=== PATIENT | male | born 1970 | race Caucasian/White ===

== ENCOUNTER 2019-06-09 21:15 | Observation (INO) | payer MEDICARE, SELFPAY ==
[2019-06-09 21:16] VITALS: BP 125/86; PULSE 126; RESP 15; TEMP 36.7; O2SAT 98; BMI 44.6
--- NOTE | 2019-06-09 21:19 | ED.RN ---
RN CALLED FOR EKG, NO OLD EKGS IN MUSE
--- NOTE | 2019-06-09 21:33 | EKG12_ITS ---
Test Reason : CP Blood Pressure : / mmHG Vent. Rate : 118 BPM Atrial Rate : 118 BPM P-R Int : 162 ms QRS Dur : 086 ms QT Int : 288 ms P-R-T Axes : 063 066 105 degrees QTc Int : 403 ms Sinus tachycardia Nonspecific T wave abnormality Abnormal ECG Confirmed by SHADY DOS SANTOS, ANTONY ([id number]), non linear editor COREY OSPINA ([id number]) on 06/11/2019 1:55:16 PM Referred By: COURTNEY Confirmed By:ANTONY CARUSO MD
[2019-06-09 21:37] VITALS: O2SAT 99
--- NOTE | 2019-06-09 21:37 | RAD_ITS ---
STUDY: X-RAY CHEST REASON FOR EXAM: Male, 49 years old. Chest pain. History of right lung surgery. TECHNIQUE: Single frontal view of the chest. COMPARISON: None. FINDINGS: There are postsurgical changes of the right lung. There is blunting of the right costophrenic angle. Normal size heart. Normal mediastinum and moy. Normal visualized pulmonary arteries. Normal visualized aortic arch and descending thoracic aorta. Normal visualized thoracic spine. Normal visualized ribs, clavicles, and shoulders. There is no demonstrated abnormality of the visualized soft tissue structures of the upper abdomen. RAD/Chest 1 View (Portable) IMPRESSION: Blunting of the right costophrenic angle which may be postsurgical in nature however cannot exclude an underlying effusion and/or consolidation. Electronically Signed: Taryn Alamo MD at 21:49 EDT Tel , Service support ,
[2019-06-09 21:48] LABS: Absolute Lymphocyte Count 2.89 X10^3/ul (0.83-4.51); Basophil# 0.04 X10^3/uL; Basophil% 0.3 % (0-1); Eosinophil# 0.12 X10^3/uL; Hematocrit 45.8 % (40-54); Hemoglobin 16.3 g/dl (13.0-16.5); Lymphocyte # 2.89 X10^3/ul (4.0); Lymphocyte % 24.5 % (19-41); Mean Corp Hgb Conc 35.6 g/gl (32-36); Mean Corpuscular Hgb 29.3 pg (27.0-32.0); Mean Corpuscular Volume 82.4 fL (80-94); Mean Platelet Vol. 11.1 fl (6.2-12.0); Monocyte# 0.71 X10^3/uL; Neutrophil # 7.99 X10^3/uL (2.7-7.7); Neutrophil % 67.9 % (47-70); Platelet Count 222 K/mm3 (150-450); RBC Distribution Width CV 13.6 % (11.6-14.6); Red Blood Count 5.56 M/mm3 (4.6-6.2); White Blood Count 11.8 K/mm3 (4.4-11.0)
[2019-06-09 21:52] LABS: POSITIVE COUNT NO; POSITIVE DIFFERENTIAL NO; POSITIVE MORPHOLOGY NO
[2019-06-09 21:59] LABS: Anion Gap 8 (5-15); BUN 17 mg/dL (7-18); BUN/Creat Ratio 14.8 RATIO (10-20); Calcium,Total 9.2 mg/dL (8.5-10.1); Chloride 101 mmol/L (98-107); Creatinine, Serum 1.15 mg/dL (0.70-1.30); EST Glomerular Filtration Rate 72 mL/min (>60); Est Glom Filt Rate - Afr Amer 87 mL/min (>60); Estimated Creatinine Clearance 86.22 ml/min; Glucose 189 mg/dL (74-106); Potassium 3.6 mmol/L (3.5-5.1); Sodium Level 136 mmol/L (136-145)
[2019-06-09] MEDS: Nitroglycerin SL (ED/IMG/CATH) 0.4 MG TABLET SUBLINGUAL (22:11)
[2019-06-09 22:12] VITALS: BP 113/74; PULSE 108; RESP 19; O2SAT 96
[2019-06-09 22:17] VITALS: BP 98/62; PULSE 105; RESP 17; O2SAT 97
--- NOTE | 2019-06-09 22:35 | ED.DCSUM_ITS ---
History of Present Illness Chief Complaint: Chest Pain Informant: Patient, Family Onset: Days Context: Sudden Onset Timing: Intermittent Quality: Tightness with radiation to the neck, shoulder and left upper extremity Location: Read above Current Severity: Mild Maximum Severity: Moderate Worsened by: Possibly activity Relieved by: Nothing Associated Symptoms: Nausea, shortness of breath and diaphoresis Narrative: Patient is a middle-age male with history of mild coronary coronary disease diagnosed 2 to 3 years ago at [facility]. He states his intermediate card tender was Dr. Mann Downing. He does have risk factors. He took nitroglycerin with no effect. Activity does make the pain worse. He denies hematemesis, melena hematochezia. He denies history of PE or DVT. He did report right leg swelling. He denies orthopnea or PND. Prior similar symptoms: Yes Recent Illness/Hospitalization: No - Past Medical History (1) History of hypertension Status: Acute (2) History of hypercholesterolemia Status: Acute (3) History of type 1 diabetes mellitus Status: Acute (4) History of coronary artery disease Status: Acute Past Medical History - Allergies and Home Meds Allergies/Adverse Reactions: Allergies ciprofloxacin [From Cipro] Adverse Reaction (Verified 06/09/19 21:19) Itching ketorolac [From Toradol] Adverse Reaction (Verified 06/09/19 21:19) Nausea tramadol Adverse Reaction (Verified 06/09/19 21:19) Nausea Primary Care Physician: Steven Fitch,Out of [Primary Care Provider] - Prior records reviewed: No Lives: Spouse/ Significant Other Smoking Status: Current every day smoker Alcohol: Rare Review of Systems General: Denies: Chills, Fever, Malaise, Sweats Eyes: Denies: Visual changes - bilaterally, Diplopia ENT: Denies: Rhinorrhea, Sore throat Cardiovascular: Reports: Chest pain. Denies: Palpitations, Heart racing, -, - Respiratory: Reports: Dyspnea, Dyspnea on exertion. Denies: Cough, Sputum, Orthopnea, Paroxysmal nocturnal dyspnea, -, - Gastrointestinal: Reports: Nausea. Denies: Abdominal pain, Vomiting, Diarrhea, Constipation, Melena, Hematochezia, -, - Genitourinary: Denies: Dysuria, Hematuria, Frequency Musculoskeletal: Denies: Back pain, Extremity Pain Skin: Denies: Rash, Wounds Neurological: Denies: Headache, Weakness, Numbness Hematologic: Denies: Easy bruising, Easy bleeding Allergy: Denies: Uticaria, Swelling of the mouth Physical Exam Vital Signs/Narrative: Vital Signs Temp Pulse Resp BP Pulse Ox 06/09/19 22:17 105 H 17 98/62 97 06/09/19 22:12 108 H 19 H 113/74 96 06/09/19 21:37 99 06/09/19 21:16 98.1 F 126 H 15 125/86 H 98 Inital Vital Signs reviewed: Yes General: Well nourished, Well developed, No Acute Distress Head: Normocephalic, Atraumatic Eyes: Perrl, EOMI ENT: Moist mucous membranes, No rhinorrhea Neck: Supple, Nontender, No lymphadenopathy, No JVD Cardiovascular: Regular rate, Regular rhythm, No murmurs, Normal S1, Normal S2 Respiratory: No distress, CTA bilaterally, Chest nontender Abdomen: Soft, Nontender, Nondistended, Normal bowel sounds Back: Nontender, Normal Inspection. Negative for: CVA tenderness, Spinal tenderness Extremities: Nontender, No edema Skin: Normal color, No rash Neurological: Alert, Oriented x3, Cranial nerves II-XII grossly intact, Normal Strength, Normal Sensation Psychological: Normal affect, Normal Mood Diagnostic/Tx/Re-eval Chest X-Ray - ED: 1 View, Read by ED Physician, Normal, Heart, Lungs, Mediastinum, No Acute Disease Impressions Chest X-Ray 06/09/19 21:37 IMPRESSION: Blunting of the right costophrenic angle which may be postsurgical in nature however cannot exclude an underlying effusion and/or consolidation. Electronically Signed: Taryn Alamo MD at 21:49 EDT Tel , Service support , 06/09/19 21:37 Chest 1 View (Portable) [RAD] Stat Laboratory Results 06/09/19 06/09/19 21:23 21:23 WBC 11.8 H RBC 5.56 Hgb 16.3 Hct 45.8 MCV 82.4 MCH 29.3 MCHC 35.6 RDW 13.6 RDW Differential 41.0 Plt Count 222 MPV 11.1 Immature Gran % (Auto) 0.300 Neut % (Auto) 67.9 Lymph % (Auto) 24.5 [place] % (Auto) 6.0 Eos % (Auto) 1.0 Baso % (Auto) 0.3 Absolute Neuts (auto) 8.0 H Absolute Lymphs (auto) 2.89 Total Counted Not Reportable Sodium 136 Potassium 3.6 Chloride 101 Carbon Dioxide 27.0 Anion Gap 8 BUN 17 Creatinine 1.15 Estim Creat Clear Calc 86.22 Est GFR (MDRD) Af Amer 87 Est GFR (MDRD) Non-Af 72 BUN/Creatinine Ratio 14.8 Glucose 189 H Calcium 9.2 Troponin I < 0.015 - Medical Decision Making With multiple risk factors for coronary disease and history of mild coronary disease cardiac work-up was undertaken. This may also represent noncardiac chest pain. History is not consistent nor is exam suggestive of biliary disease. Doubt reflux. Patient was treated with aspirin, nitroglycerin. Work-up was unremarkable. Patient states nitroglycerin did not help. Will treat with IV morphine. ED Disposition - Plan for ED Patient: Disposition: Acute Care Hospital [facility] Diagnosis: Midsternal chest pain, History of coronary artery disease, History of hypercholesterolemia, History of type 1 diabetes mellitus, History of hypertension Referrals: [facility] Doctor,Out of [Primary Care Provider] -
[2019-06-09 23:28] VITALS: BP 107/79; PULSE 93; RESP 11; O2SAT 97
[2019-06-09] MEDS: Morphine 4 MG/ML Syringe IV (23:35)
[2019-06-09 23:36] VITALS: BP 124/77; PULSE 105; RESP 19; TEMP 36.6; O2SAT 97
--- NOTE | 2019-06-09 23:53 | HP.PCM_ITS ---
Problem List (1) Diabetes mellitus Status: Acute Qualifiers: Diabetes mellitus type: type 2 Diabetes mellitus terminal carman insulin use: with [facility] use Diabetes mellitus complication status: with other specified complication Qualified Code(s): E11.69 - Type 2 diabetes mellitus with other specified complication; Z79.4 - extermination supervisor (current) use of insulin (2) CAD (coronary artery disease) Status: Chronic Qualifiers: Coronary Disease-Associated Artery/Lesion type: [place] artery [place] vs. transplanted heart: [place] heart Associated angina: with unspecified angina Qualified Code(s): I25.119 - Atherosclerotic heart disease of [place] coronary artery with unspecified angina pectoris (3) Hypertension Status: Chronic Qualifiers: Hypertension type: essential hypertension Qualified Code(s): I10 - Essential (primary) hypertension (4) Hyperlipidemia Status: Chronic Qualifiers: Hyperlipidemia type: unspecified Qualified Code(s): E78.5 - Hyperlipidemia, unspecified History of Present Illness Date of Admission: 06/10/19 Chief Complaint: Chest pain - 2 days The patient is a 49 year old M with past medical history of type II DM, hyperlipidemia, hypertension, morbid obesity, chronic smoker, CAD, anxiety/depression who comes in with complaints of chest pain which started 1 day prior to arrival. Chest pain is of sudden onset, intermittent, sharp, radiates to the neck showed in the left side of the chest. It comes on at rest, and worse with activity, not relieved by anything. It is associated with diaphoresis, shortness of breath, nausea but no vomiting. He also admits to feeling lightheaded and having palpitations. He took a nitroglycerin which had no effect. He admits to having had a cardiac cath done 3 years ago in [facility] after a stress test was abnormal. Cardiac cath was apparently normal He has not followed up with cardiology after that since. Vitals in the ED showed temperature 98.1 F, heart rate 126, blood pressure 125/86, respiratory 15, SPO2 is 98% on room air. His CBC D was remarkable only for WBC count of 11.8, BMP was unremarkable except for glucose of 189. Troponin x1 was negative. EKG shows normal sinus rhythm, no acute ST changes. Chest x-ray shows blunting of the right costophrenic angle, suggestive of effusion Past Medical History Past Medical History (Chronic Problems): Chronic Problems History of hypertension (Chronic) CAD (coronary artery disease) (Chronic) Hypertension (Chronic) Hyperlipidemia (Chronic) Allergies ciprofloxacin [From Cipro] Adverse Reaction (Verified 06/09/19 21:19) Itching ketorolac [From Toradol] Adverse Reaction (Verified 06/09/19 21:19) Nausea tramadol Adverse Reaction (Verified 06/09/19 21:19) Nausea Home Medications: Ambulatory Orders Medication Instructions Recorded Atorvastatin Calcium [Lipitor] 80 mg PO QHS 06/09/19 Furosemide [Lasix] 10 mg PO DAILY 06/09/19 Insulin Lispro [Humalog] 25 unit SQ TIDCM 06/09/19 Metformin HCl 1,000 mg PO BID 06/09/19 Ranolazine [Ranexa] 1,000 mg PO BID 06/09/19 Surgical History: cholecystectomy, herniorrhaphy, tonsillectomy, - - Status post lung surgery for possible lung abscess, status post left orchidectomy for testicular CA, status post 2 cardiac cath Psychiatric History: Anxiety, Depression Lives: Spouse/ Significant Other Smoking Status: Current every day smoker Tobacco Use: Cigarettes Alcohol: Rare Drugs: None - *Family History Maternal History Items: No pertinent history Paternal History Items: Heart Disease - Congestive heart failure, quadruple bypass Review of Systems Constitutional: Denies: Anorexia, Chills, Fever, Malaise, Weakness, Weight Change, Fatigue Eyes: Denies: Blurred vision, Cataracts, Conjunctivae Inflammation, Pain, Redness, Vision Change HEENT: Denies: Difficulty Hearing, Difficulty Swallowing, Head Aches, Hearing Changes Cardiovascular: Reports: Chest Pain, Chest Pressure, Chest Tightness, Light Headedness, Palpitations. Denies: Orthopnea, Paroxysmal Noc. Dyspnea, Syncope Respiratory: Reports: Shortness of Breath, Shortness of breath at rest, Shortness of breath upon exertion. Denies: Cough, Hemoptysis, Sputum production, Wheezing Gastrointestinal: Denies: Abdominal Pain, Constipation, Hematemesis, Hematochezia, Nausea, Melena, Vomiting Genitourinary: Denies: Dysuria, Frequency, Nocturia Musculoskeletal: Denies: Joint stiffness, Joint swelling, Joint Tenderness Neurological: Denies: Difficulty swallowing, Focal weakness, Headaches Psychiatric: Reports: Anxiety, Depression Hematologic/ Lymphatic: Denies: Easy Bruising, Easy Bleeding VTE Information - Inpt Only VTE Present on Admission: No VTE Pharm Prophylaxis ordered?: Yes Patient Problems: Active and Suspected Problems History of hypercholesterolemia (Acute) History of type 1 diabetes mellitus (Acute) History of coronary artery disease (Acute) Diabetes mellitus (Acute) - Physical Exam General: Alert, Oriented x3, Cooperative, No apparent distress, - - morbidly obese HEENT: Atraumatic, PERRLA, EOMI, Normocephalic Oral: Moist Mucosa Neck: Supple Lungs: Normal air movement, Diminished - especially at the lung bases Cardiovascular: Regular rate, Regular Rhythm, Normal S1, Normal S2, No murmurs Abdomen: Bowel Sounds Present, Soft, Non Tender, Non-Distended, No Hepato- splenomegaly Extremities: No edema Skin: - - Tattoe over his back, erythematous papular rash, heat related Musculoskeletal: No Tenderness to Palpation of Joints or Extremities Lymphatic: No Cervical, Supraclavicular, or Inguinal Adenopathy Neurological: Cranial nerves II-XII grossly intact, Neuro grossly intact Psych/Mental Status: Normal Affect, Appropriate Vital Signs Temp Pulse Resp BP Pulse Ox 97.9 F 105 H 19 H 124/77 H 97 06/09/19 23:36 06/09/19 23:36 06/09/19 23:36 06/09/19 23:36 06/09/19 23:36 Oxygen Flow Rate (L/min) 1 Oxygen Delivery Method Nasal Cannula Weight: 149.4 kg Body Mass Index (BMI) 44.6 Laboratory Tests Past 24 Hrs 06/09/19 06/09/19 21:23 21:23 WBC 11.8 H RBC 5.56 Hgb 16.3 Hct 45.8 MCV 82.4 MCH 29.3 MCHC 35.6 RDW 13.6 RDW Differential 41.0 Plt Count 222 MPV 11.1 Immature Gran % (Auto) 0.300 Neut % (Auto) 67.9 Lymph % (Auto) 24.5 [place] % (Auto) 6.0 Eos % (Auto) 1.0 Baso % (Auto) 0.3 Absolute Neuts (auto) 8.0 H Absolute Lymphs (auto) 2.89 Total Counted Not Reportable Sodium 136 Potassium 3.6 Chloride 101 Carbon Dioxide 27.0 Anion Gap 8 BUN 17 Creatinine 1.15 Estim Creat Clear Calc 86.22 Est GFR (MDRD) Af Amer 87 Est GFR (MDRD) Non-Af 72 BUN/Creatinine Ratio 14.8 Glucose 189 H Calcium 9.2 Troponin I < 0.015 Assessment/Plan All Active Problems History of hypercholesterolemia (Acute) History of type 1 diabetes mellitus (Acute) History of coronary artery disease (Acute) Diabetes mellitus (Acute) 49 year old M with past medical history of type II DM, hyperlipidemia, hypertension, morbid obesity, chronic smoker, CAD, anxiety/depression who comes in with complaints of chest pain which started 1 day prior to arrival. 1. Chest pain, atypical, in the male with multiple comorbidities including type II DM, hypertension, hyperlipidemia, CAD, chronic smoker and strong family history of coronary artery disease in father, Troponins x1 is negative, EKG shows no acute ST-T changes Plan: Admit to PCU, continue to monitor on telemetry, trend troponins aspirin 81 mg p.o. daily, continue on statins, nitro as needed, 2D echo, stress test in a.m. Continue on Ranexa 2. Type II DM, on insulin and metformin, will hold metformin, continue insulin, blood sugar checks with insulin sliding scale 3. Hyperlipidemia: Continue home statin regimen 4. Morbid obesity, BMI 43.7, lifestyle modification recommended 5. Nicotine dependence, advised to quit, will continue on replacement 6. Abnormal chest x-ray suggestive of right pleural effusion, history of lung surgery in the past, will get CT of the chest to evaluate 7. DVT PPx- Lovenox 40mg BID Code Visit OBSV E&M: 56002 Initial observation care L3
[2019-06-10] VITALS (8 sets, daily range): BP systolic 107–138; BP diastolic 65–82; PULSE 82–93; RESP 16–18; TEMP 36.4–37.1; O2SAT 97–99; BMI 43.7
--- NOTE | 2019-06-10 00:49 | EKG12_ITS ---
Test Reason : CP ADMISSION Blood Pressure : / mmHG Vent. Rate : 084 BPM Atrial Rate : 084 BPM P-R Int : 170 ms QRS Dur : 096 ms QT Int : 360 ms P-R-T Axes : 043 037 063 degrees QTc Int : 425 ms Normal sinus rhythm Nonspecific ST and T wave abnormality Abnormal ECG When compared with ECG of 09-JUN-2019 21:18, MANUAL COMPARISON REQUIRED, DATA IS UNCONFIRMED Confirmed by SHADY DOS SANTOS, ANTONY ([id number]), social media editor COREY OSPINA ([id number]) on 06/12/2019 11:19:11 AM Referred By: DALIA Confirmed By:ANTONY CARUSO MD
--- NOTE | 2019-06-10 01:09 | ECHOCS_ITS ---
Reason For Study: CHEST PAIN Procedure This was a 2D Doppler, Color Flow transthoracic echocardiogram. Technically difficult d/t body habitus. Exam performed portable in patient room. Left Ventricle Normal LV size. Mild concentric left ventricular hypertrophy. Left ventricular systolic function is normal. The estimated ejection fraction is 65 %. Stage 1 diastolic dysfunction. No regional wall motion abnormalities noted. Right Ventricle Normal RV size. Normal systolic function. Atria Normal left atrium. Normal right atrium. Mitral Valve Normal mitral valve. Tricuspid Valve Normal tricuspid valve. Aortic Valve Trisinus/trileaflet aortic valve. Pulmonic Valve Normal pulmonic valve. Great Vessels Normal aortic root. The pulmonary artery is normal size. Normal inferior vena cava. Pericardium/Pleural No pericardial effusion. Medication Diluted definity 4ml given slow IV push to enhance endocardial definition. MMode/2D Measurements & Calculations LVIDd: 4.4 cm IVSd: 1.2 cm Ao root diam: 3.2 cm LVIDs: 3.2 cm LVPWd: 1.2 cm RVDd: 3.9 cm FS: 28.8 % LAV(MOD-bp): 57.9 ml LVAd ap4: 36.0 cm2 SV(MOD-sp4): 80.4 ml LAV(MOD-bp) Indexed: 22.0 ml/m2 EDV(MOD-sp4): 124.5 ml LAV(MOD-sp2): 63.6 ml EDV(sp4-el): 131.6 ml LAV(MOD-sp4): 48.0 ml LVAs ap4: 19.6 cm2 ESV(MOD-sp4): 44.1 ml ESV(sp4-el): 46.7 ml EF(MOD-sp4): 64.6 % EF(sp4-el): 64.6 % SV(sp4-el): 85.0 ml LA A4 area: 17.2 cm2 LA dimension(2D): 3.7 cm RA A4 area: 17.3 cm2 Time Measurements MV dec time: 0.19 sec Doppler Measurements & Calculations MV E max horace: 59.1 cm/sec Lat Peak E' Horace: 9.7 cm/sec Med Peak E' Horace: 6.8 cm/sec MV A max horace: 57.2 cm/sec E/E' lat: 6.1 E/E' med: 8.6 MV E/A: 1.0 Ao V2 max: 135.5 cm/sec LV V1 max: 122.0 cm/sec PA V2 max: 94.2 cm/sec Ao max P.4 mmHg LV V1 max P.0 mmHg Interpretation Summary Normal LV size. Left ventricular systolic function is normal. The estimated ejection fraction is 65 %. Mild concentric left ventricular hypertrophy. Stage 1 diastolic dysfunction. Contrast injection was performed. Ordering Physician: Ester Duron Performed By: Joanna Espinoza, DOMINGO, RVT
[2019-06-10] MEDS: 0.9% Normal Saline 1,000 ML 75 ML IV (01:11)
[2019-06-10] MEDS: Morphine 2 MG/ML Syringe 1 MG IV ×3 (01:12→10:24)
[2019-06-10] MEDS: Ondansetron 4 MG/2 ML Vial IV (01:13)
[2019-06-10] MEDS: Aspirin 81 MG TAB.CHEW PO (02:45)
--- NOTE | 2019-06-10 05:55 | CT_ITS ---
STUDY: CT CHEST WITHOUT CONTRAST REASON FOR EXAM: Male, 49 years old. Dyspnea. History of right pleural effusion. RADIATION DOSAGE (If Supplied By Facility): CTDIvol = ( 28.71 ) mGy, DLP = ( 1247.95 ) mGycm TECHNIQUE: Transaxial imaging was performed without the administration of intravenous contrast material. Multiplanar coronal and sagittal images were reformatted. Individualized dose optimization techniques were used for this CT. COMPARISON: None. FINDINGS: Small bilateral axillary lymph nodes. Findings suggestive minimal scarring at the right lung base. Elevation of the right hemidiaphragm. There is no demonstrated pleural abnormality. There are calcifications of the coronary arteries. There are multiple small lymph nodes within the mediastinum, which are normal in size and morphology most compatible with reactive lymph hyperplasia. Normal hilar regions. Normal unenhanced pulmonary arteries. Normal aorta arch and descending thoracic aorta. There are degenerative changes of the thoracic spine. Posterior right-sided rib deformity secondary to prior lung surgery. The patient is status post cholecystectomy. CT/Chest without Contrast IMPRESSION: Findings suggestive of minimal scarring at the right lung base. There is no evidence of pleural effusion. Electronically Signed: Brent Patel, at 15:31 EDT , Service support ,
[2019-06-10 06:10] LABS: Absolute Lymphocyte Count 2.52 X10^3/ul (0.83-4.51); Absolute Neutrophil Count 5.2 X10^3/uL (2.0-7.7); Basophil# 0.05 X10^3/uL; Basophil% 0.6 % (0-1); Eosinophil# 0.17 X10^3/uL; Eosinophils% 1.9 % (0-5); Hematocrit 45.5 % (40-54); Hemoglobin 15.9 g/dl (13.0-16.5); Lymphocyte # 2.52 X10^3/ul (4.0); Lymphocyte % 28.8 % (19-41); Mean Corp Hgb Conc 34.9 g/gl (32-36); Mean Corpuscular Hgb 28.2 pg (27.0-32.0); Mean Corpuscular Volume 80.8 fL (80-94); Mean Platelet Vol. 11.5 fl (6.2-12.0); Monocyte# 0.75 X10^3/uL; Monocyte% 8.6 % (0-10); Neutrophil # 5.22 X10^3/uL (2.7-7.7); Neutrophil % 59.8 % (47-70); Platelet Count 202 K/mm3 (150-450); RBC Distribution Width CV 13.9 % (11.6-14.6); RBC Distribution Width SD 40.4 fl (35.1-43.9); Red Blood Count 5.63 M/mm3 (4.6-6.2); White Blood Count 8.7 K/mm3 (4.4-11.0)
[2019-06-10 06:11] LABS: Bedside Glucose 152 mg/dL (70-110)
[2019-06-10 06:13] LABS: POSITIVE COUNT NO; POSITIVE DIFFERENTIAL NO; POSITIVE MORPHOLOGY NO
[2019-06-10 06:17] LABS: Anion Gap 7 (5-15); BUN 16 mg/dL (7-18); BUN/Creat Ratio 20.3 RATIO (10-20); Calcium,Total 8.8 mg/dL (8.5-10.1); Chloride 104 mmol/L (98-107); Cholesterol 127 mg/dL (200); Creatinine, Serum 0.79 mg/dL (0.70-1.30); EST Glomerular Filtration Rate 111 mL/min (>60); Est Glom Filt Rate - Afr Amer 134 mL/min (>60); Estimated Creatinine Clearance 125.51 ml/min; Glucose 131 mg/dL (74-106); High Density Lipoprotein 32 mg/dL; Potassium 3.4 mmol/L (3.5-5.1); Sodium Level 139 mmol/L (136-145); Triglycerides 178 mg/dL; Very Low Density Lipoprotein 36 mg/dL (5-40)
--- NOTE | 2019-06-10 08:36 | NURSING ---
pt off floor at this time for stress test
[2019-06-10] MEDS: 0.9% NaCl Peripheral Flush Adult/Peds IV (10:28)
[2019-06-10 12:46] LABS: Bedside Glucose 247 mg/dL (70-110)
[2019-06-10] MEDS: Insulin Lispro 100 UNIT/ML INSULN.PEN SC ×2 (12:47→18:18)
[2019-06-10] MEDS: Ranolazine 500 MG Tablet 1000 MG PO (12:52)
--- NOTE | 2019-06-10 13:47 | DCINST_ITS ---
- Discharge Diagnoses Current Active Problems: Current Active and Chronic Problems History of hypertension (Chronic) History of hypercholesterolemia (Acute) History of type 1 diabetes mellitus (Acute) History of coronary artery disease (Acute) Diabetes mellitus (Acute) CAD (coronary artery disease) (Chronic) Hypertension (Chronic) Hyperlipidemia (Chronic) You will use the following diet at home:: Calorie/Carbohydrate Controlled (specify 1200, 1400, etc) - 1800 trip / day, Cardiac Your food should be the consistency of: Regular Your liquids should be the consistency of: Regular/Thin Discharge Activity: Return to Normal Activity Allergies/Adverse Reactions: Allergies ciprofloxacin [From Cipro] Adverse Reaction (Verified 06/09/19 21:19) Itching ketorolac [From Toradol] Adverse Reaction (Verified 06/09/19 21:19) Nausea tramadol Adverse Reaction (Verified 06/09/19 21:19) Nausea Medications to take at Discharge Atorvastatin Calcium [Lipitor] 80 mg PO QHS 06/09/19 Furosemide [Lasix] 10 mg PO DAILY 06/09/19 Insulin Lispro [Humalog] 25 unit SQ TIDCM 06/09/19 Metformin HCl 1,000 mg PO BID 06/09/19 Ranolazine [Ranexa] 1,000 mg PO BID 06/09/19 Aspirin [Aspirin, Baby] 81 mg PO DAILY@0800 tab.chew 06/10/19 Primary Care Physician: Steven Fitch,Out of [Primary Care Provider] - Please follow up with your Primary Care Physician in: 1-2 weeks Test Results: Test results from this visit will be discussed in further detail at your follow- up appointment, if applicable. Proposed Discharge Date: 06/10/19
--- NOTE | 2019-06-10 13:48 | STRESSREP ---
Stress Test Report Pharmacologic myocardial perfusion stress test. 49-year-old man with a history of sharp chest pain. Stress protocol: Resting EKG demonstrates normal sinus rhythm with a rate of 78 bpm normal intervals are noted resting blood pressures 128/78 mmHg. 0.4 mg of adenosine was infused per usual protocol followed by rapid intravenous saline flush injection continuous EKG monitoring was performed. The maximum heart rate attained was 100 bpm which was 58% maximum predicted heart rate. Resting blood pressure was 128/78 final blood pressure was 122/70 mmHg. Patient did complain of neck and jaw discomfort during the infusion. The significance of the above is not clear at this time. Myocardial perfusion protocol. 14.8 mCi of technetium 99m sestamibi was injected at rest. 0.4 mg of regadenoson was infused per usual protocol peak infusion 44.9 mCi of technetium 99m sestamibi was injected stress images were obtained stress and rest images were reconstructed in comparing the short axis vertical and horizontal long axis. Gated images was obtained Perfusion SPECT analysis: Review of the stress images demonstrate normal uptake of tracer noted in all areas of the myocardium. On the raw images there is significant GI attenuation artifact noted. No obvious ischemia is however noted to suggest coronary artery disease. Gated SPECT analysis: The gated ejection fraction is noted to be 69%. Conclusion: Normal pharmacologic myocardial perfusion stress test.
[2019-06-10] MEDS: oxyCODONE 5 MG Tablet PO (14:10)
--- NOTE | 2019-06-10 14:30 | VDLE_ITS ---
Reason For Study: RLE swelling RIGHT LEFT GSV is normal. CFV is compressible, spontaneous, phasic, CFV is compressible, spontaneous, phasic, competent, and demonstrates normal competent and demonstrates normal augmentation. augmentation. FV is compressible, spontaneous, phasic, competent and demonstrates normal augmentation. POP V is compressible, spontaneous, phasic, competent and demonstrates normal augmentation. T/P Trunk is compressible. PTV is compressible. RT PerV is compressible. Procedure Exam performed portable in patient room. The exam was diagnostic. A preliminary report was called and/or faxed to [facility]. Interpretation Summary There is no evidence of right lower extremity deep vein thrombosis. Right greater saphenous vein appears patent and compressible segmentally. Normal flow patterns left common femoral vein. Ordering Physician: Bobbi Polk Referring Physician: OTD Performed By: Bharti Gonzales, DOMINGO, RVT
--- NOTE | 2019-06-10 14:53 | PN_ITS ---
Patient Problems: Active and Suspected Problems History of hypercholesterolemia (Acute) History of type 1 diabetes mellitus (Acute) History of coronary artery disease (Acute) Diabetes mellitus (Acute) Subjective: Ongoing chest pain. This is described as midsternal heaviness as well as a sharp left sided rib pain. He has radiation in to his neck. This pain feels similar to the pain he had when he had a cath 3 years ago at which point he was told he has mild CAD. He has never had stents or CABG. He continues to smoke. He also has right ankle swelling and aching that started earlier this week. No hx blood clots. - Physical Exam General: Alert, Oriented x3, Cooperative HEENT: Atraumatic, PERRLA, EOMI, Normocephalic Neck: Supple, No JVD, Negative Carotid Bruits Lungs: Clear to auscultation, Normal air movement Cardiovascular: Regular rate, No murmurs Abdomen: Bowel Sounds Present, Soft, Non Tender Extremities: Capillary Refill Less than 3 Seconds, Edema - 1+ pitting edema RLE. +Vladimir sign. Skin: No rashes, No breakdown Musculoskeletal: No Tenderness to Palpation of Joints or Extremities Neurological: Cranial nerves II-XII grossly intact Psych/Mental Status: Normal Affect, Appropriate, Alert and oriented to time, place, person, mood and affect Vital Signs Temp Pulse Resp BP Pulse Ox 98.5 F 82 16 121/68 H 97 06/10/19 10:20 06/10/19 10:20 06/10/19 10:20 06/10/19 10:20 06/10/19 10:20 Oxygen Flow Rate (L/min) 2 Oxygen Delivery Method Room Air Weight: 322 lb 8.58 oz Body Mass Index (BMI) 43.7 Intake and Output for Last 24 Hours 06/08/19 06/09/19 06/10/19 23:59 23:59 23:59 Intake Total 564 / 564 Balance 564 / 564 Laboratory Tests Past 24 Hrs 06/09/19 06/09/19 06/10/19 21:23 21:23 02:29 WBC 11.8 H RBC 5.56 Hgb 16.3 Hct 45.8 MCV 82.4 MCH 29.3 MCHC 35.6 RDW 13.6 RDW Differential 41.0 Plt Count 222 MPV 11.1 Immature Gran % (Auto) 0.300 Neut % (Auto) 67.9 Lymph % (Auto) 24.5 [place] % (Auto) 6.0 Eos % (Auto) 1.0 Baso % (Auto) 0.3 Absolute Neuts (auto) 8.0 H Absolute Lymphs (auto) 2.89 Total Counted Not Reportable Sodium 136 Potassium 3.6 Chloride 101 Carbon Dioxide 27.0 Anion Gap 8 BUN 17 Creatinine 1.15 Estim Creat Clear Calc 86.22 Est GFR (MDRD) Af Amer 87 Est GFR (MDRD) Non-Af 72 BUN/Creatinine Ratio 14.8 Glucose 189 H Hemoglobin A1c Calcium 9.2 Troponin I < 0.015 < 0.015 Triglycerides Cholesterol LDL Cholesterol VLDL Cholesterol HDL Cholesterol 06/10/19 06/10/19 06/10/19 05:00 05:00 05:00 WBC 8.7 RBC 5.63 Hgb 15.9 Hct 45.5 MCV 80.8 MCH 28.2 MCHC 34.9 RDW 13.9 RDW Differential 40.4 Plt Count 202 MPV 11.5 Immature Gran % (Auto) 0.300 Neut % (Auto) 59.8 Lymph % (Auto) 28.8 [place] % (Auto) 8.6 Eos % (Auto) 1.9 Baso % (Auto) 0.6 Absolute Neuts (auto) 5.2 Absolute Lymphs (auto) 2.52 Total Counted Not Reportable Sodium 139 Potassium 3.4 L Chloride 104 Carbon Dioxide 28.0 Anion Gap 7 BUN 16 Creatinine 0.79 Estim Creat Clear Calc 125.51 Est GFR (MDRD) Af Amer 134 Est GFR (MDRD) Non-Af 111 BUN/Creatinine Ratio 20.3 H Glucose 131 H Hemoglobin A1c 9.0 H Calcium 8.8 Troponin I < 0.015 Triglycerides 178 Cholesterol 127 LDL Cholesterol 59 VLDL Cholesterol 36 HDL Cholesterol 32 L POC Glucose 06/10/19 06/10/19 12:36 05:52 POC Glucose 247 H 152 H Medical Necessity - Tobacco Use Smoking Status: Current every day smoker Tobacco Use: Cigarettes Assessment/Plan All Active Problems History of hypercholesterolemia (Acute) History of type 1 diabetes mellitus (Acute) History of coronary artery disease (Acute) Diabetes mellitus (Acute) 1. Chest pain - concern for worsening of underlying CAD. Symptoms are concerning, recurred during stress test, though stress was negative. Trop neg x 3. Neg tele. CXR neg. CT chest shows enlarged liver. Concern for PE as well. RLE venous duplex ordered as he has intermittent swelling starting earlier this week. No hx clots. -Other risk factors - smoking, morbid obesity, DMt2, HLD, HTN. -Last cath 3 years ago at [facility] no intervention. 2. Dmt2 - A1C 9.0. Poorly controlled. Will need additional agent, ideally one that conveys reduction in cardiovascular events 3. Nicotine abuse - encouraged cessation, patch if desired 4. HTN/HLD - home meds DVT ppx: lovenox DC planning: Cardiology consult. This patient was seen by Edgardo Griffith PA-C under the supervision of Dr. Polk.
[2019-06-10] MEDS: Insulin Lispro 100 UNIT/ML INSULN.PEN 25 UNIT SC ×2 (15:48→18:17)
[2019-06-10 15:56] LABS: Bedside Glucose 222 mg/dL (70-110)
--- NOTE | 2019-06-10 17:10 | CT_ITS ---
STUDY: CTA CHEST REASON FOR EXAM: Male, 49 years old. Chest pain with right lower extremity edema and pain RADIATION DOSAGE (If Supplied By Facility): CTDIvol = ( 15.63 ) mGy, DLP = ( 1156.09 ) mGycm TECHNIQUE: The examination was performed with the intravenous administration of 150 IV Isovue 370. Post-processing of the angiographic images was performed, with multiplanar reformation and 3D reconstruction. Individualized dose optimization techniques were used for this CT. COMPARISON: None. FINDINGS: Limited exam to evaluate for pulmonary embolism. Contrast bolus of the main pulmonary artery only 118 HU. There is no evidence of a large central pulmonary embolus. No comment can be made about distal branches or even second and third branch vessels. No evidence of saddle emboli. Normal thoracic aorta and visualized great vessels. There is no demonstrated aortic dissection. Normal heart and pericardium. No evidence of right heart strain Normal mediastinum. Normal hilar regions. Normal visualized trachea and bronchi. The lungs are well expanded. Normal pulmonary parenchyma. Normal pleura. Normal chest wall structures. Normal osseous structures. Normal visualized upper abdomen. CT/CTA Chest W/WO Contrast IMPRESSION: Suboptimal exam to evaluate for pulmonary embolism as detailed above. No evidence of a very large central pulmonary embolism is noted. Lungs are clear. No evidence of right heart strain. Electronically Signed: Shane Cornejo DO at 18:29 EDT Tel , Service support ,
[2019-06-10 18:30] LABS: Bedside Glucose 207 mg/dL (70-110)
--- NOTE | 2019-06-10 19:00 | PCM.DC.SUM ---
Discharge Date and Diagnosis Date of Admission: 06/10/19 Date of Discharge: 06/10/19 - Primary Discharge Diagnosis (1) Chest Pain, Suspected non-cardiac, unclear specific etiology (2) RLE Pain, Transient Edema, No evidence of acute DVT (3) Incidentally noted RLL Lung scarring (4) Diabetes mellitus type II, uncontrolled (5) Morbid Obesity (6) Hypertension (7) Hyperlipidemia (8) Patient reported CAD (2015 cardiac catheter without any notable CAD findings) - Secondary Discharge Diagnosis Chronic Problems History of hypertension (Chronic) CAD (coronary artery disease) (Chronic) Hypertension (Chronic) Hyperlipidemia (Chronic) Hospital Course and Treatment Operations: None Procedures: 2-D Echocardiogram, EKG, Stress test Summary of Care Provided: The patient is a 49 y/o F w/ PMHx: CAD without PCI with last catheterization ~ 3 years prior, HTN, HLD, Morbid Obesity, Diabetes mellitus type II, Tobacco use, Anxiety and Depression who presented to the [facility] ED on 06/09/19 w/ history of 3-4 day history of intermittent sharp left sided chest pain with radiation to his left jaw with dyspnea associated. EKG in ED without acute evidence of ischemia, CXR w/ blunting, initial trop normal. Admitted to PCU, placed on a monitored bed to assure no acute myocardial infarction with serial cardiac enzymes and EKGs. Patient despite pain regimen with ongoing atypical pain even during stress test although stress testing was noted to be normal with no evidence of inducible ischemia. Records from most recent Cardiac catheterization [facility] 12/15/2015 w/ no significant angiographic CAD disease, normal EF. DVT ultrasound right lower extremity was obtained also given patient recent admitted transient edema but DVT study was noted to be unremarkable. CTPA was also obtained and demonstrated no acute evidence of pulmonary emboli or other acute findings. Discussed case and reviewed records from [facility] where patient had his last recent cardiac catheterization which was completely unremarkable therefore following review of this with cardiology noted a very low risk for cardiac etiology. Patient clinically improved and amenable to discharge following negative CT PA of his chest with plan follow-up outpatient with cardiology. Encouraged improved diabetic medication and diet compliance. Patient discharged home in improved condition with follow-up with primary care physician as well as cardiology recommended follow-up at his discretion. - Physical Exam Vital Signs Temp Pulse Resp BP Pulse Ox 98.1 F 92 18 135/75 H 97 06/10/19 19:04 06/10/19 19:04 06/10/19 19:04 06/10/19 19:04 06/10/19 19:04 Oxygen Flow Rate (L/min) 2 Oxygen Delivery Method Room Air Weight: 322 lb 8.58 oz Body Mass Index (BMI) 43.7 Intake and Output for Last 24 Hours 06/09/19 06/10/19 06/11/19 23:59 23:59 23:59 Intake Total 1211 / 1211 Balance 1211 / 1211 Laboratory Tests Past 24 Hrs 06/10/19 06/10/19 06/10/19 05:00 05:00 05:00 WBC 8.7 RBC 5.63 Hgb 15.9 Hct 45.5 MCV 80.8 MCH 28.2 MCHC 34.9 RDW 13.9 RDW Differential 40.4 Plt Count 202 MPV 11.5 Immature Gran % (Auto) 0.300 Neut % (Auto) 59.8 Lymph % (Auto) 28.8 [place] % (Auto) 8.6 Eos % (Auto) 1.9 Baso % (Auto) 0.6 Absolute Neuts (auto) 5.2 Absolute Lymphs (auto) 2.52 Total Counted Not Reportable Sodium 139 Potassium 3.4 L Chloride 104 Carbon Dioxide 28.0 Anion Gap 7 BUN 16 Creatinine 0.79 Estim Creat Clear Calc 125.51 Est GFR (MDRD) Af Amer 134 Est GFR (MDRD) Non-Af 111 BUN/Creatinine Ratio 20.3 H Glucose 131 H Hemoglobin A1c 9.0 H Calcium 8.8 Troponin I < 0.015 Triglycerides 178 Cholesterol 127 LDL Cholesterol 59 VLDL Cholesterol 36 HDL Cholesterol 32 L POC Glucose 06/10/19 06/10/19 06/10/19 18:13 15:46 12:36 POC Glucose 207 H 222 H 247 H 06/10/19 05:52 POC Glucose 152 H Discharge Activity: Return to Normal Activity Home Medications: Medications to take at Discharge Atorvastatin Calcium [Lipitor] 80 mg PO QHS 06/09/19 Furosemide [Lasix] 40 mg PO DAILY 06/09/19 Insulin Lispro [Humalog] 25 unit SQ TIDCM 06/09/19 Metformin HCl 1,000 mg PO BID 06/09/19 Ranolazine [Ranexa] 1,000 mg PO BID 06/09/19 Amlodipine Besylate 10 mg PO DAILY 06/10/19 Aspirin [Aspirin, Baby] 81 mg PO DAILY@0800 tab.chew 06/10/19 Bupropion HCl [Bupropion Xl] 150 mg PO DAILY 06/10/19 Lisinopril [Zestril] 40 mg PO DAILY 06/10/19 Venlafaxine HCl [Venlafaxine HCl ER] 150 mg PO DAILY 06/10/19 Primary Care Physician: Steven Doctor,Out of [Primary Care Provider] - Please follow up with your Primary Care Physician in: 1-2 weeks Disposition: Home Minutes spent on discharge:: 35 Patient Condition:: Fair Medical Necessity - Tobacco Use Smoking Status: Current every day smoker Tobacco Use: Cigarettes Meaningful Use Info Meaningful Use Diagnoses (Choose all that apply): None applicable Code Visit OBSV E&M: 82693 Observation care discharge
== END 2019-06-10 19:15 | disposition home or self-care (01) ==
LOC: ED 23:19 → PCU 23:35
PROVIDERS: Admitting Provider Internal Medicine; Emergency Provider Emergency Medicine; Visit Provider Family Medicine
DX: R07.89 Other chest pain (principal); M79.604 Pain in right leg; E11.65 Type 2 diabetes mellitus with hyperglycemia; E66.01 Morbid (severe) obesity due to excess calories; E78.5 Hyperlipidemia, unspecified; I10 Essential (primary) hypertension; I25.10 Atherosclerotic heart disease of native coronary artery without angina pectoris; Z68.41 Body mass index [BMI] 40.0-44.9, adult; Z71.3 Dietary counseling and surveillance; Z79.899 Other long term (current) drug therapy; Z79.4 Long term (current) use of insulin; F17.210 Nicotine dependence, cigarettes, uncomplicated
CPT/HCPCS: 36415; 71045; 71250; 71275; 78452; 80048; 80061; 82962; 83036; 84484; 85025; 93005; 93017; 93306; 93971; 96361; 96374; 96375; 96376; 97802; 99218; 99285; 99406; A9500; J7030; Q9957; Q9967; A4216; C8929; G0378; J2405; J2785

== ENCOUNTER 2019-08-21 12:35 | Emergency (ER) | payer MEDICARE, SELFPAY ==
[2019-06-10 00:42] VITALS: BMI 43.7
[2019-08-21 12:38] VITALS: BP 125/86; PULSE 99; RESP 13; TEMP 36.7; O2SAT 92; BMI 44.9
[2019-08-21 12:43] VITALS: O2SAT 97
--- NOTE | 2019-08-21 13:04 | EKG12_ITS ---
Test Reason : CP Blood Pressure : / mmHG Vent. Rate : 096 BPM Atrial Rate : 096 BPM P-R Int : 156 ms QRS Dur : 084 ms QT Int : 328 ms P-R-T Axes : 051 052 055 degrees QTc Int : 414 ms Normal sinus rhythm Normal ECG Confirmed by AMADO DOS SANTOS, BENJI ([id number]), general expeditor RALPH MORENO ([id number]) on 08/23/2019 10:23:46 A M Referred By: DEVIKA Confirmed By:CARMEN FISCHER MD
--- NOTE | 2019-08-21 13:04 | RAD_ITS ---
STUDY: X-RAY CHEST REASON FOR EXAM: Male, 49 years old. Chest pain. TECHNIQUE: Single AP portable view of the chest. COMPARISON: Comparison is made with prior study dated June 09, 2019. FINDINGS: EKG electrodes are seen. Stable elevation of the right hemidiaphragm with blunting of the right costophrenic angle. The lungs are clear. There is no demonstrated pleural abnormality. Normal size heart. Normal mediastinum and moy. Normal visualized pulmonary arteries. Normal visualized aortic arch and descending thoracic aorta. Normal visualized thoracic spine. Normal visualized ribs, clavicles, and shoulders. There is no demonstrated abnormality of the visualized soft tissue structures of the upper abdomen. RAD/Chest 1 View (Portable) IMPRESSION: Stable blunting of the right costophrenic angle with elevation of the right hemidiaphragm. Electronically Signed: Brent Patel, at 13:38 EDT , Service support ,
--- NOTE | 2019-08-21 13:06 | ED.VISSUMM ---
- ER Visit Summary Date of Service: 08/21/19 Chief Complaint: Anxiety and chest pain History of Present Illness: The patient is a 49 M 3 of mild CAD without any stents reportedly prior MS, insulin-dependent diabetes and prior testicular cancer. He had a stress test earlier this year which was unremarkable. Patient states he is been very anxious for the last week because he had a home inspection, not. Today they did a home inspection he was very nervous said he was shaking all over and shaking inside. He developed chest pain on the left side of his chest. Took one nitro which took the pain from a 6 to a 1. But he still feels anxious all over. He thinks this is all from an anxiety attack. He denies any recent exertional chest pain or exertional dyspnea. No history of DVT or PE. No leg swelling. No hemoptysis. No recent immobilization. Physical Examination: White male. Vital signs stable afebrile. Pulse ox 97% on room air no signs of hypoxia. He is in no distress. But he is anxious and nervous. HEENT exam unremarkable. He has multiple piercings. Neck nontender no JVD. Lungs clear to auscultation bilaterally. Heart regular rhythm rate about 90 no murmur. Chest wall nontender. No ecchymosis or bruising. No subcu air crepitance. Abdomen is soft and nontender normal bowel sounds no peritoneal signs. Patient moving all 4 extremities. There are neurovascular intact. 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 Calves are nontender without edema or cords. Neurologically is awake and alert with no focal motor deficits. Test Results: CBC White count 11. Hemoglobin 15. Electrolytes sodium 133. Normal creatinine and gap. Glucose 221. Troponin normal. EKG sinus rhythm rate of 96 no acute signs of MS or ischemia. Unchanged from prior EKG. Chest x-ray shows elevated right hemidiaphragm otherwise unremarkable. Unchanged from prior. Emergency Department Course and Treatment: This very well may be an anxiety attack. Patient undergo cardiac work-up. He will receive baby aspirin and 1 p.o. Ativan for his anxiety. Repeat exam patient had a second anxiety attack while in the emergency department both times he responded well to p.o. Ativan. Clinically I do not feel this is a cardiac event and feel this is anxiety. He has been off 3 separate antidepressant and anxiety meds that he was previously taking but has not had them refilled. Treatment Plan: Refill of his Klonopin, Effexor and Wellbutrin. Follow-up with his primary care physician. Return if worse. Disposition: Discharge Impression: Acute chest pain Acute anxiety attack This note was generated with [employer] dictation software. It may contain incorrect words, spelling, and punctuation that were not noted in review of the chart prior to signing ED Disposition - Plan for ED Patient: Referrals: [facility] Doctor,Out of [Primary Care Provider] -
[2019-08-21] MEDS: Aspirin 81 MG TAB.CHEW 324 MG PO (13:49)
[2019-08-21] MEDS: LORazepam 1 MG Tablet PO ×2 (13:49→14:32)
[2019-08-21 13:51] VITALS: O2SAT 96
[2019-08-21 13:59] LABS: Absolute Lymphocyte Count 1.93 X10^3/uL (0.83-4.51); Absolute Neutrophil Count 8.8 X10^3/uL (2.0-7.7); Basophil# 0.07 X10^3/uL; Basophil% 0.6 % (0-1); Eosinophil# 0.08 X10^3/uL; Eosinophils% 0.7 % (0-5); Hematocrit 45.2 % (40-54); Hemoglobin 15.5 g/dL (13.0-16.5); Lymphocyte # 1.93 X10^3/ul (4.0); Lymphocyte % 16.6 % (19-41); Mean Corp Hgb Conc 34.3 g/dL (32-36); Mean Corpuscular Hgb 28.8 pg (27.0-32.0); Mean Platelet Vol. 10.8 fl (6.2-12.0); Monocyte# 0.72 X10^3/uL; Monocyte% 6.2 % (0-10); NRBC Flagged by Analyzer 0 % (0-5); Neutrophil # 8.76 X10^3/uL (2.7-7.7); Neutrophil % 75.6 % (47-70); Platelet Count 208 K/mm3 (150-450); RBC Distribution Width CV 12.5 % (11.6-14.6); RBC Distribution Width SD 37.8 fl (35.1-43.9); Red Blood Count 5.38 M/mm3 (4.6-6.2); White Blood Count 11.6 K/mm3 (4.4-11.0)
[2019-08-21 14:16] LABS: Anion Gap 4 (5-15); BUN 13 mg/dL (7-18); BUN/Creat Ratio 12.9 RATIO (10-20); Calcium,Total 9.1 mg/dL (8.5-10.1); Chloride 102 mmol/L (98-107); Creatinine, Serum 1.01 mg/dL (0.70-1.30); EST Glomerular Filtration Rate 84 mL/min (>60); Est Glom Filt Rate - Afr Amer 101 mL/min (>60); Estimated Creatinine Clearance 98.17 ml/min; Glucose 221 mg/dL (74-106); Potassium 4.4 mmol/L (3.5-5.1); Sodium Level 133 mmol/L (136-145)
[2019-08-21 14:33] VITALS: BP 175/100; PULSE 113; RESP 16; O2SAT 99
--- NOTE | 2019-08-21 14:33 | ED.RN ---
THIS RN CALLED TO PT ROOM, PT STATES I'M HAVING ANOTHER PANIC ATTACK. PT SITTING UPRIGHT IN BED, APPEARS ANXIOUS, NOTIFIED AND PT MEDICATED AGAIN PER ORDERS.
--- NOTE | 2019-08-21 15:48 | ED.DEP ---
ED Disposition - Plan for ED Patient: Disposition: Home or Assisted Living Instructions: CHEST PAIN, Uncertain Cause, Panic Attack Prescriptions: Venlafaxine XR [Effexor Xr] 150 mg PO DAILY #20 cap.er.24h Prescription Printed Clonazepam [Klonopin] 2 mg PO BID #40 tab Prescription Printed Bupropion HCl [Wellbutrin Xl] 150 mg PO DAILY #20 tab.er.24h Prescription Printed Referrals: [facility] Doctor,Out of [Primary Care Provider] - As soon as possible Additional Instructions: Consult your primary care physician as soon as possible to be reevaluated and have your medications refilled. Return if feeling worse.
[2019-08-21 16:06] VITALS: BP 135/86; PULSE 84; RESP 16; O2SAT 100
== END 2019-08-21 16:10 | disposition home or self-care (01) ==
PROVIDERS: Emergency Provider Emergency Medicine
DX: R07.9 Chest pain, unspecified (principal); F41.9 Anxiety disorder, unspecified; I25.10 Atherosclerotic heart disease of native coronary artery without angina pectoris; E11.9 Type 2 diabetes mellitus without complications; Z72.0 Tobacco use; Z79.82 Long term (current) use of aspirin; Z79.4 Long term (current) use of insulin; Z79.899 Other long term (current) drug therapy; I25.2 Old myocardial infarction; Z85.47 Personal history of malignant neoplasm of testis
CPT/HCPCS: 71045; 80048; 84484; 85025; 93005; 99285; A4216

== ENCOUNTER 2020-01-05 22:55 | Emergency (ER) | payer MEDICARE, SELFPAY ==
[2020-01-05 22:56] VITALS: BP 180/101; PULSE 85; RESP 16; TEMP 37; O2SAT 98; BMI 43.4
--- NOTE | 2020-01-05 23:17 | CT_ITS ---
HISTORY: CONFUSION, FORGETFULLNESS, DIZZINESS WITH SYNCOPE AND FALL FOR 2 WEEKS, HX HTN, LA, TESTICULAR CA Technique:CT Head or Brain W/O Contrast Injection Number of Images including paperwork:270 Comparison: None available. Findings: CT images of the head were obtained without contrast. Periventricular deep and subcortical white matter disease is present. Prominent CSF space to the left of the midline in the posterior fossa likely represents a subarachnoid cyst. He does have some mass effect on the cerebellar hemispheres, left greater than right. Paranasal sinuses are clear. The brain is minimally atrophic. Trace calcific plaque within bilateral cavernous ICAs. No acute intracranial edema or hemorrhage. No acute abnormality of orbits. Middle ear cavities and mastoid air cells are well aerated. Skull is normal. CT/Brain/Head without Contrast IMPRESSION: No acute intracranial abnormality. Mild brain atrophy for patient's stated age 49 years. Left posterior fossa CSF density suggestive of an arachnoid cyst is having some mass effect on both cerebral hemispheres, left greater than right. No herniation. Chronic changes as above. ASPECT 10. Individualized dose optimization techniques were used for this CT. at 0018 Reported and signed by: Jason Gillespie MD Electronically Signed: Jason Gillespie MD at 0:17 EST Tel , Service support ,
--- NOTE | 2020-01-05 23:17 | RAD_ITS ---
HISTORY: Chest discomfort. EXAM: XR Chest 2 Views: COMPARISON: August 21, 2019 chest x-ray. CT scan of the chest from June 10, 2019. June 09, 2019 chest x-ray. FINDINGS: # of images incl. paperwork: 3 Elevation of the right hemidiaphragm with blunting of the right costophrenic sulcus was present on previous chest x-ray as well. Additional comparison is made to the CT scan of the chest from June 10, 2019. This finding appears to be due to the diaphragm and elevation of the anterior aspect of the right hemidiaphragm in the pericardial fat, and not a pleural effusion. It is unchanged since the first comparison study, a chest x-ray of June 09, 2019 Lungs are clear. Heart is not enlarged. Dextroscoliosis with multilevel degenerative disc disease and enthesophytes is unchanged Pulmonary vascularity is distinct. No effusions. RAD/Chest PA and Lateral IMPRESSION: No acute disease. Chronic elevation anteriorly of the right hemidiaphragm obscuring the anterior aspect of the right lateral costophrenic sulcus, better demonstrated on previous CTs. at 0039 Reported and signed by: Jason Gillespie MD Electronically Signed: Jason Gillespie MD at 0:38 EST Tel , Service support ,
--- NOTE | 2020-01-05 23:17 | EKG12_ITS ---
Test Reason : CONFUSION Blood Pressure : / mmHG Vent. Rate : 078 BPM Atrial Rate : 078 BPM P-R Int : 150 ms QRS Dur : 090 ms QT Int : 352 ms P-R-T Axes : 052 057 044 degrees QTc Int : 401 ms Normal sinus rhythm Normal ECG Confirmed by SHADY DOS SANTOS, ANTONY ([id number]), production editor COREY OSPINA ([id number]) on 01/07/2020 8:04:16 AM Referred By: NABIL Confirmed By:ANTONY CARUSO MD
[2020-01-05 23:20] VITALS: BP 160/94; PULSE 82; RESP 18; O2SAT 96
[2020-01-05] MEDS: 0.9% Normal Saline 1,000 ML 1000 ML IV (23:35)
[2020-01-05 23:41] LABS: Absolute Neutrophil Count 7.1 X10^3/uL (2.0-7.7); Basophil# 0.06 X10^3/uL; Basophil% 0.6 % (0-1); Eosinophil# 0.11 X10^3/uL; Eosinophils% 1.1 % (0-5); Hematocrit 45.4 % (40-54); Hemoglobin 15.5 g/dL (13.0-16.5); Lymphocyte % 23.1 % (19-41); Mean Corp Hgb Conc 34.1 g/dL (32-36); Mean Corpuscular Hgb 29.2 pg (27.0-32.0); Mean Corpuscular Volume 85.7 fL (80-94); Monocyte# 0.71 X10^3/uL; Monocyte% 6.8 % (0-10); NRBC Flagged by Analyzer 0 % (0-5); Neutrophil # 7.09 X10^3/uL (2.7-7.7); Neutrophil % 68.1 % (47-70); Platelet Count 167 K/mm3 (150-450); RBC Distribution Width CV 13.3 % (11.6-14.6); RBC Distribution Width SD 41.3 fl (35.1-43.9); White Blood Count 10.4 K/mm3 (4.4-11.0)
[2020-01-06 00:03] LABS: ALB/GLOB Ratio 0.9 RATIO (0.9-2.4); AST(SGOT) 11 U/L (15-37); Alanine Aminotransfer ALT/SGPT 23 U/L (16-61); Albumin, Serum 3.1 g/dL (3.2-5.0); Alkaline Phosphatase 75 U/L (45-117); Anion Gap 5 (5-15); BUN 11 mg/dL (7-18); BUN/Creat Ratio 9.4 RATIO (10-20); Calcium,Total 8.9 mg/dL (8.5-10.1); Chloride 103 mmol/L (98-107); Creatinine, Serum 1.17 mg/dL (0.70-1.30); EST Glomerular Filtration Rate 70 mL/min (>60); Est Glom Filt Rate - Afr Amer 85 mL/min (>60); Estimated Creatinine Clearance 84.75 ml/min; Globulin 3.3 g/dL (2.2-4.2); Glucose 276 mg/dL (74-106); Potassium 4.2 mmol/L (3.5-5.1); Protein, Total 6.4 g/dL (6.4-8.2); Sodium Level 137 mmol/L (136-145)
--- NOTE | 2020-01-06 00:06 | ED.VISSUMM ---
- ER Visit Summary Date of Service: 01/06/20 Chief Complaint: Confusion and dizziness History of Present Illness: The patient is a 49 M who presents with confusion and dizziness that is been getting worse over the past 3 days. Patient states it feels like he is foggy. Patient states he has been forgetful over the last few days. Patient states he feels lightheaded like he might pass out. Patient admits to a dull pain in his right occipital area. Patient states nothing makes this better or worse. Patient denies any fevers or chills but does admit to some sweats. Patient admits to nausea but denies any vomiting. Patient does admit to some pain in his chest but denies any shortness of breath. Physical Examination: Vital signs are stable except for an elevated blood pressure of 180/101. Patient is afebrile. Patient is in no acute distress. Oral mucosa is pink and moist. Neck is supple. Trachea is midline. There is no JVD. Heart was regular rate and rhythm. Lungs are clear and equal bilaterally. Abdomen is soft. Bowel sounds are normal. There is no tenderness. Cranial nerves II through XII are intact. There are no focal motor or sensory deficits noted. Test Results: EKG showed a normal sinus rhythm with a rate of 78 there are no ectopics noted. There are no acute ST or T wave changes noted. This was unchanged compared to previous EKG dated 08/21/2019. CBC and comprehensive metabolic profile were within normal limits. Troponin was normal. PA and lateral chest x-ray was obtained. There is no acute cardiopulmonary process. CT scan of the brain was obtained. There is a left posterior fossa arachnoid cyst with some mass-effect on the cerebellar hemispheres, worse on the left. There is no herniation. This was interpreted by the radiologist and reviewed by myself. Emergency Department Course and Treatment: Patient has a normal neurologic exam. Case was discussed with Dr. Shah from [facility]. He recommended following up as an outpatient. Patient was instructed to return if worse in any way. Patient understood and was agreeable with the plan. All questions were answered. Disposition: Discharge home Impression: 1. Posterior fossa arachnoid cyst This note was generated with [employer] software. It may contain incorrect words, spelling, and punctuation that were not noted in review of the chart prior to signing ED Disposition - Plan for ED Patient: Disposition: Home or Assisted Living Diagnosis: Arachnoid cyst Instructions: Confusion Referrals: [facility] Doctor,Out of [NON-STAFF] - Nirmal Mancuso MD [NON-STAFF] - 3-5 Days
[2020-01-06 01:00] VITALS: BP 166/90; PULSE 77; RESP 18
[2020-01-06 02:34] VITALS: BP 182/94; PULSE 87; RESP 18; O2SAT 99
[2020-01-06 02:40] VITALS: PULSE 87; RESP 18; O2SAT 99
== END 2020-01-06 02:41 | disposition home or self-care (01) ==
PROVIDERS: Emergency Provider Emergency Medicine
DX: G93.0 Cerebral cysts (principal); I25.10 Atherosclerotic heart disease of native coronary artery without angina pectoris; I10 Essential (primary) hypertension; E11.9 Type 2 diabetes mellitus without complications; F32.9 Major depressive disorder, single episode, unspecified; F41.9 Anxiety disorder, unspecified; Z79.4 Long term (current) use of insulin; Z79.84 Long term (current) use of oral hypoglycemic drugs; Z72.0 Tobacco use
CPT/HCPCS: 70450; 71046; 80053; 84484; 85025; 93005; 96360; 96361; 99284; J7030; A4216